=== PATIENT | female | born 1945 | race Caucasian/White ===

== ENCOUNTER 2019-04-09 08:51 | Emergency (ER) | payer MEDICARE ==
[2019-04-09 09:12] VITALS: BP 126/62
--- NOTE | 2019-04-09 11:24 | UC ---
Knee Pain HPI - HPI Summary HPI Summary: 73 year old female with PMH + for HTN fainted yesterday while on a house tour of a mansion without air conditioning. patient stated she felt hot, dizzy, sweating a lot, but continued on the standing tour, leaning on tables for support in 90+ degree heat. After a few minutes, she fainted, being caught by her friends, but hit head on brick floor and twisted knee. EMS called, judie'd on scene with BP, glucose stable. She contiued the tour and drove home. CUrrently no CHANCE, but pain over bump on head. mild nausea, still able to eat and drink without difficulty, no mental deficits. No bleeding, no vision changes. Also c/o L knee pain, psterior laterally. h/o meniscal tear, no treatment, no other pain. no h/o OA. - History of Current Complaint Chief Complaint: UCHeadInjury Stated Complaint: PASSED OUT AND HIT HEAD Time Seen by Provider: 04/09/19 08:57 Hx Obtained From: Patient ?: No Onset/Duration: Sudden Onset, Lasting Days Severity Initially: Mild Severity Currently: Mild Pain Intensity: 1 Pain Scale Used: 0-10 Numeric Aggravating Factor(s): Movement - right knee, Weight Bearing - right knee, Prolonged Standing - right knee Alleviating Factor(s): Rest Able to Bear Weight: Yes - Allergies/Home Medications Allergies/Adverse Reactions: Allergies Allergy/AdvReac Type Severity Reaction Status Date / Time latex Allergy Swelling Verified 04/09/19 09:13 Home Medications: Home Medications amLODIPine TAB* [Norvasc 5 mg TAB*] 5 mg PO DAILY 04/09/19 [History Confirmed ] PMH/Surg Hx/FS Hx/Imm Hx Previously Healthy: Yes - htn Cardiovascular History: Hypertension - Surgical History Surgical History: Yes Surgery Procedure, Year, and Place: RIGHT LOWER LEG SURGERY (METAL CHRISTAL IN LEG) 2000, [facility]. RIGHT OOPHERECTOMY AND APPENDECOMY, 1971 - Family History Known Family History: Positive: Non-Contributory - Social History Alcohol Use: Daily Alcohol Amount: 1-2 glasses of wine with dinner Substance Use Type: None Smoking Status (MU): Former Smoker Type: Cigarettes Length of Time of Smoking/Using Tobacco: One year of smoking at the age of 18 Have You Smoked in the Last Year: No When Did the Patient Quit Smoking/Using Tobacco: 50 years - Immunization History Most Recent Influenza Vaccination: never Most Recent Tetanus Shot: unknown Most Recent Pneumonia Vaccination: never Review of Systems All Other Systems Reviewed And Are Negative: Yes Constitutional: Positive: Negative Skin: Negative: Rash, Bruising Eyes: Negative: Blurred Vision, Diplopia, Drainage, Eye Redness, Photophobia Respiratory: Negative: Shortness Of Breath, Cough Cardiovascular: Negative: Palpitations, Chest Pain Gastrointestinal: Positive: Nausea. Negative: Abdominal Pain, Vomiting, Diarrhea Neurovascular: Negative: Decreased Sensation, Decreased Pulses Musculoskeletal: Positive: Arthralgia, Decreased ROM, Edema, Myalgia Neurological: Negative: Headache, Weakness, Paresthesia, Numbness Psychological: Negative: Anxious, Depressed Is Patient Immunocompromised?: No Physical Exam Triage Information Reviewed: Yes Appearance: Well-Appearing, No Pain Distress, Well-Nourished Vital Signs: Initial Vital Signs Temp 99.8 F 04/09/19 09:04 Pulse 82 04/09/19 09:04 Resp 12 04/09/19 09:04 BP 126/62 04/09/19 09:04 Pulse Ox 98 04/09/19 09:04 Vital Signs Reviewed: Yes Eyes: Positive: Conjunctiva Clear, Other: - EMOI, PERRLA ENT: Positive: Hearing grossly normal. Negative: Dental tenderness, Sinus tenderness Neck: Positive: Supple, Nontender, No Lymphadenopathy. Negative: Nuchal Rigidity, Enlarged Nodes @ Respiratory: Positive: Chest non-tender, Lungs clear, Normal breath sounds, No respiratory distress, No accessory muscle use. Negative: Respiratory distress, Crackles, Rhonchi, Stridor, Wheezing Cardiovascular: Positive: RRR, No Murmur, Pulses Normal Musculoskeletal: Positive: Strength Intact, ROM Intact, No Edema, Other: - Right knee: TTP over lateral joint line, + berkley laterally, no effusion, neg ACL, PCL testing, no pain/ lax with starr/ tylor stress. Neurological: Positive: Alert, Muscle Tone Normal Skin: Positive: Other - TTP over lateral right posterior skull, no deformity noted, skull appearings intact, no raised region, no bleeding/ hemotoma/ ecchymosis seen. area ~ 2cm in TTP. Negative: Rashes, Breakdown Knee Pain Course/Dx - Course Course Of Treatment: Discussed radiograph for head, patient declined due to lack of symptoms. Radiograph for right knee- negative Possible meniscal tear, right knee - Naproxen 250mg twice daily x 3-4 days to decrease swelling, pain - Follow up with orthopedics within 1-2 weeks if no improvement of pain - Elevate, ice, rest as much as possible during next 2-3 days - NURY wrap for comfort - Go immediately to ER with any mental changes- (ie decreased speech) neck pain , increased headache, vomiting. - Differential Dx/Diagnosis Differential Diagnosis/HQI/PQRI: DVT, Fracture (Closed), Fracture (Open), Sprain , Strain Provider Diagnosis: Right knee injury, Post concussion syndrome Discharge - Sign-Out/Discharge Documenting (check all that apply): Patient Departure All imaging exams completed and their final reports reviewed: Yes - Discharge Plan Condition: Good Disposition: HOME Patient Education Materials: Post Concussion Syndrome (ED), R.I.C.E. Treatment (ED) Referrals: Arcelia Haynes NP [Primary Care Provider] - Nolan Blood MD [Medical Doctor] - 1 Week (FOllow up within 1 week if no improvement ) Additional Instructions: - Naproxen 250mg twice daily x 3-4 days to decrease swelling, pain - Follow up with orthopedics within 1-2 weeks if no improvement of pain - Elevate, ice, rest as much as possible during next 2-3 days - NURY wrap for comfort - Go immediately to ER with any mental changes- (ie decreased speech) neck pain , increased headache, vomiting. - Billing Disposition and Condition Condition: GOOD Disposition: Home
[2019-04-09 16:20] LABS: ABS Lymphocytes 0.9 10^3/ul (1.0-4.8); ABS Monocytes 0.6 10^3/ul (0-0.8); ABS Neutrophils 3.8 10^3/ul (1.5-7.7); Eosinophil % 0.4 %; Hematocrit 42 % (35-47); Hemoglobin 14.4 g/dL (12.0-16.0); Lymphocyte % 17.5 %; Mean Corpuscular HGB Conc 35 g/dL (31-36); Mean Corpuscular Hemoglobin 32 pg (27-31); Mean Corpuscular Volume 92 fL (80-97); Mean Platelet Volume 9.5 fL (7.4-10.4); Platelet Count 191 10^3/uL (150-450); Red Blood Count 4.51 10^6 /uL (3.70-4.87); Red Cell Distribution Width 13 % (10-15); White Blood Count 5.4 10^3/uL (3.5-10.8)
[2019-04-09 16:37] LABS: Albumin 4.8 g/dL (3.2-5.2); Potassium 3.9 mmol/L (3.5-5.0); Total Bilirubin 0.8 mg/dL (0.2-1.0)
[2019-04-09 16:43] LABS: BUN/Creatinine Ratio 23.9 (8-20); EGFR African American 104.4 (>60); EGFR Non-African American 86.3 (>60); Globulin 2.4 g/dL (2-4); Total Protein 7.2 g/dL (6.4-8.9)
== END 2019-04-09 11:38 | disposition home or self-care (01) ==
LOC: UCEAST 08:51
DX: F07.81 Postconcussional syndrome (principal); S89.91XA Unspecified injury of right lower leg, initial encounter; W18.30XA Fall on same level, unspecified, initial encounter; Y92.89 Other specified places as the place of occurrence of the external cause; I10 Essential (primary) hypertension; Z91.040 Latex allergy status; Z87.891 Personal history of nicotine dependence
CPT/HCPCS: 36415; 80053; 85025; 99201; G0463

== ENCOUNTER 2019-08-23 07:02 | Emergency (ER) | payer MEDICARE ==
[2019-08-23 07:24] VITALS: BP 140/68
--- NOTE | 2019-08-23 07:33 | UC ---
Bite Injury/Animal HPI - HPI Summary HPI Summary: 74yo woman who has been in the process of befriending a feral cat, which bit her on the left forearm on the morning of 08/20/19. She is years post tetanus booster. She had increasing pain and redness of the left forearm. On 08/21 and 08/22 she took 50mg of doxycycline 4 times daily; she uses doxy q 2 months for management of rosacea. Despite this, she has pain at the puncture site along with redness, no fever. Erythema of the volar surface has decreased since she began the use of doxy. Feral cat, knows not immunized, but the cat's behavior is normal and has returned daily to be fed since the injury. Remains playful. - History of Current Complaint Chief Complaint: UCBiteInjury Stated Complaint: CAT BITE Time Seen by Provider: 08/23/19 07:23 Hx Obtained From: Patient Severity Currently: Moderate Severity Initially: Mild Pain Intensity: 2 Onset/Duration: Gradual Onset, Lasting Days - 3 Type of Bite: Animal Has Animal Been Immunized?: No Character: Puncture Aggravating Factor(s): Exertion Alleviating Factor(s): Other - use of doxycycline Associated Signs And Symptoms: Positive: Erythema, Swelling Hx of Bite: Provoked by: - picking up the animal Animal Available for Observation: No Animal Control Notified: Yes - Risk Factors Infection/Sepsis Risk Factors: Full-Thickness Puncture, Delay in Initial Treatment - Allergies/Home Medications Allergies/Adverse Reactions: Allergies Allergy/AdvReac Type Severity Reaction Status Date / Time latex Allergy Swelling Verified 04/09/19 09:13 Home Medications: Home Medications DOXYcycline CAP(*) [DOXYcycline 100MG CAP(*)] 1 cap PO DAILY WITH MEAL 08/23/19 [History Confirmed 08/23/19] PMH/Surg Hx/FS Hx/Imm Hx - Additional Past Medical History Additional PMH: Concussion 04/2019 Previously Healthy: Yes Cardiovascular History: Hypertension - Surgical History Surgical History: Yes Surgery Procedure, Year, and Place: RIGHT LOWER LEG SURGERY (METAL CHRISTAL IN LEG) 2000, [facility]. RIGHT OOPHERECTOMY AND APPENDECOMY, 1971 - Family History Known Family History: Positive: Non-Contributory - Social History Occupation: Retired Lives: Alone Alcohol Use: Daily Alcohol Amount: 1-2 glasses of wine with dinner Substance Use Type: None Smoking Status (MU): Former Smoker Type: Cigarettes Length of Time of Smoking/Using Tobacco: One year of smoking at the age of 18 Have You Smoked in the Last Year: No When Did the Patient Quit Smoking/Using Tobacco: 50 years - Immunization History Most Recent Influenza Vaccination: never Most Recent Tetanus Shot: unknown Most Recent Pneumonia Vaccination: never Review of Systems All Other Systems Reviewed And Are Negative: Yes Constitutional: Positive: Negative Skin: Positive: Other - redness and swelling left forearm Eyes: Positive: Negative ENT: Positive: Negative Respiratory: Negative: Shortness Of Breath, Cough Cardiovascular: Positive: Other - recent stress testing normal; done post syncopal episode.. Negative: Palpitations, Chest Pain Gastrointestinal: Positive: Negative Genitourinary: Positive: Negative Motor: Positive: Other - pain with movenent of left wrist. Musculoskeletal: Positive: Arthralgia Neurological: Positive: Negative Psychological: Positive: Negative Is Patient Immunocompromised?: No Physical Exam Triage Information Reviewed: Yes Appearance: Well-Appearing, Pain Distress - mild to moderate Vital Signs: Initial Vital Signs Temp 97.1 F 08/23/19 07:13 Pulse 85 08/23/19 07:13 Resp 18 08/23/19 07:13 BP 140/68 08/23/19 07:13 Pulse Ox 97 08/23/19 07:13 Vital Signs Reviewed: Yes ENT: Positive: Normal ENT inspection Neck: Positive: Supple, Nontender, No Lymphadenopathy Respiratory: Positive: Lungs clear, Normal breath sounds, Other: - No axillary adenopathy on the left Cardiovascular: Positive: RRR, No Murmur Musculoskeletal: Positive: ROM Limited @ - mild restriction of rom left wrist. No swelling of the left hand, and no pain with passive movment of the digits. Neurological Exam: Normal Neurological: Positive: Alert, Muscle Tone Normal Psychological Exam: Normal Skin Exam: Other - left forearm with puncture wound on the dorsal surface of the distal foream with 7 cm of erythema surrounding. Volar forearm with 20 x 7 cm area of mild erythema. Bite Injury Course/Dx - Course Course Of Treatment: Tetanus booster given (latex allergy is mild). Health department contacted and they will contact the patient. Discontinue doxy and change to augmentin - Differential Dx/Diagnosis Differential Diagnosis/HQI/PQRI: Cellulitis, Puncture Provider Diagnosis: Cellulitis of left forearm Discharge ED - Sign-Out/Discharge Documenting (check all that apply): Patient Departure All imaging exams completed and their final reports reviewed: No Studies - Discharge Plan Condition: Stable Disposition: HOME Prescriptions: Amoxicillin/Clavulanate TAB* [Augmentin TAB 875*] 875 mg PO BID #20 tab Patient Education Materials: Cellulitis (ED), Diphtheria/Acellular Pertussis/ Tetanus Vaccine (By injection) Referrals: Arcelia Haynes NP [Primary Care Provider] - Additional Instructions: Stop use of doxycycline and begin use of augmentin twice daily for treatment of infection. --if you have increasing pain and redness or fever, please proceed directly to the emergency room for further treatment. The health department will contact you regarding observation of the cat involved Use acetaminophen as needed for control of pain. Kepp you left arm elevated. By tomorrow you should be seeing some response to the change of antibiotic. You have received a tetanus booster today. - Billing Disposition and Condition Condition: STABLE Disposition: Home
[2019-08-23] MEDS ORDERED: Tetan/Diph/Pertus SYR(Tdap)* 0.5 ML SYR(BOOSTRIX) use SYR contains LATEX IM ONE (07:46)
== END 2019-08-23 08:13 | disposition home or self-care (01) ==
LOC: UCEAST 07:02
DX: L03.114 Cellulitis of left upper limb (principal); Z23 Encounter for immunization; I10 Essential (primary) hypertension; Z91.040 Latex allergy status; Z87.891 Personal history of nicotine dependence
CPT/HCPCS: 90471; 90715; 99212; G0463